=== PATIENT | male | born 1990 | race African-American/Black ===

== ENCOUNTER 2023-06-29 14:23 | Inpatient (IN) | payer OTHER ==
[2023-06-29 18:17] LABS: BASO % 0.4 % (0-2.0); EOS % 0.1 % (0-4.5); HEMATOCRIT 45.9 % (35.4-49); LYMPH % 13.8 % (8-40); MCH 30.1 pg (25.7-33.7); MCHC 34.8 g/dl (32.0-35.9); MEAN CELL VOLUME 86.4 fl (80-96); MEAN PLT VOLUME 7.4 fl (7.5-11.1); NEUT % 72.7 % (42.8-82.8); PLATELET COUNT 270 10^3/uL (134-434); RBC 5.31 M/mm3 (4.00-5.60); RDW 12.9 % (11.9-15.9); WHITE BLOOD COUNT 6.3 K/mm3 (4.0-10.0)
[2023-06-29 18:39] LABS: ALBUMIN 3.4 g/dl (3.4-5.0); CALCIUM 9.2 mg/dL (8.5-10.1)
[2023-06-29 18:40] LABS: BLOOD UREA NITROGEN 13.5 mg/dL (7-18)
[2023-06-29 18:44] LABS: BILIRUBIN,TOTAL 0.4 mg/dL (0.2-1); TOT PROT 8.6 g/dl (6.4-8.2)
[2023-06-29] MEDS ORDERED: PIPERACILLIN/TAZOB 4.5 GM 4.5 GM/100 ML BAG IVPB ONE (20:43)
[2023-06-29] MEDS ORDERED: VANCOMYCIN 1 GRAM (PRE-DOCKED) 1,000 MG/250 ML BAG IVPB ONE (20:43)
[2023-06-29] MEDS: PIPERACILLIN/TAZOB 4.5 GM 4.5 GM in DEXTROSE 5%-WATER 100 ML IVPB ONE (20:50)
[2023-06-29] MEDS: VANCOMYCIN 1,000 MG in DEXTROSE 5%-WATER - 250 ML IVPB ONE (21:17)
[2023-06-30] MEDS: ACETAMINOPHEN 325 MG TABLET (FP) PO PRN (00:48)
[2023-06-30 06:42] LABS: HEMATOCRIT 40.7 % (35.4-49); HEMOGLOBIN 14.2 GM/dL (11.7-16.9); MCH 29.9 pg (25.7-33.7); MEAN CELL VOLUME 85.6 fl (80-96); MEAN PLT VOLUME 7.8 fl (7.5-11.1); PLATELET COUNT 256 10^3/uL (134-434); RBC 4.75 M/mm3 (4.00-5.60); RDW 12.8 % (11.9-15.9); WHITE BLOOD COUNT 6.2 K/mm3 (4.0-10.0)
[2023-06-30 07:26] LABS: POTASSIUM 4.4 mmol/L (3.5-5.1)
[2023-06-30 07:28] LABS: ALBUMIN 2.8 g/dl (3.4-5.0); BLOOD UREA NITROGEN 14.8 mg/dL (7-18); CALCIUM 8.9 mg/dL (8.5-10.1); MAGNESIUM 2.1 mg/dL (1.8-2.4)
[2023-06-30 07:31] LABS: PHOSPHOROUS 4.3 mg/dL (2.5-4.9)
[2023-06-30 07:33] LABS: BILIRUBIN,TOTAL 0.4 mg/dL (0.2-1); TOT PROT 7.3 g/dl (6.4-8.2)
[2023-06-30] MEDS ORDERED: ACETAMINOPHEN 325 MG TABLET (FP) ONE (09:18)
[2023-06-30] MEDS ORDERED: ENOXAPARIN NA (PORCINE) 40 MG/0.4 ML DISP.SYRIN SQ ONE (10:37)
[2023-06-30] MEDS: ENOXAPARIN NA (PORCINE) 40 MG/0.4 ML DISP.SYRIN SQ SCH (10:41)
[2023-06-30 12:26] VITALS: BMI 20.1
[2023-06-30] MEDS: VANCOMYCIN/WATER 1250 MG 1,250 MG/250 ML BAG IVPB SCH (13:39)
[2023-06-30 15:46] LABS: EPI CELLS 4 /uL (0-25.1); HYALINE CASTS 1 /uL (0-3.1); PH,URINE 5.5 (5.0-8.0); URINE APPEARANCE CLEAR; URINE BACTERIA 0 /uL (0-1359); URINE BILIRUBIN NEGATIVE (NEGATIVE); URINE COLOR YELLOW; URINE GLUCOSE (UA) NEGATIVE (NEGATIVE); URINE KETONE 1+ (NEGATIVE); URINE LEUK ESTERASE NEGATIVE (NEGATIVE); URINE NITRITE NEGATIVE (NEGATIVE); URINE PROTEIN 1+ (NEGATIVE); URINE WBC 15 /uL (0-25.8)
[2023-06-30] MEDS: PIPERACILLIN/TAZOB 3.375 GM 3.375 GM in DEXTROSE 5%-WATER - 50 ML IVPB SCH (17:01)
[2023-07-01 07:48] LABS: CALCIUM 8.4 mg/dL (8.5-10.1)
[2023-07-01 07:49] LABS: ALBUMIN 2.5 g/dl (3.4-5.0); BLOOD UREA NITROGEN 18.4 mg/dL (7-18); MAGNESIUM 1.8 mg/dL (1.8-2.4)
[2023-07-01 07:52] LABS: CREATININE 1.1 mg/dL (0.55-1.3)
[2023-07-01 07:54] LABS: TOT PROT 6.8 g/dl (6.4-8.2)
[2023-07-01 07:55] LABS: BASO % 0.8 % (0-2.0); EOS % 0.1 % (0-4.5); HEMATOCRIT 36.8 % (35.4-49); HEMOGLOBIN 13.2 GM/dL (11.7-16.9); LYMPH % 16.4 % (8-40); MCH 30.4 pg (25.7-33.7); MCHC 35.9 g/dl (32.0-35.9); MEAN CELL VOLUME 84.8 fl (80-96); MEAN PLT VOLUME 7.8 fl (7.5-11.1); NEUT % 66.7 % (42.8-82.8); PLATELET COUNT 272 10^3/uL (134-434); RBC 4.34 M/mm3 (4.00-5.60); RDW 13.1 % (11.9-15.9); WHITE BLOOD COUNT 6.3 K/mm3 (4.0-10.0)
[2023-07-01 07:57] LABS: BILIRUBIN,TOTAL 0.4 mg/dL (0.2-1)
[2023-07-02 09:59] LABS: BASO % 0.8 % (0-2.0); EOS % 0.2 % (0-4.5); HEMATOCRIT 39.4 % (35.4-49); HEMOGLOBIN 13.6 GM/dL (11.7-16.9); LYMPH % 13.7 % (8-40); MCH 29.8 pg (25.7-33.7); MCHC 34.5 g/dl (32.0-35.9); MEAN CELL VOLUME 86.5 fl (80-96); MEAN PLT VOLUME 7.7 fl (7.5-11.1); MONO % 13.3 % (3.8-10.2); PLATELET COUNT 287 10^3/uL (134-434); RBC 4.56 M/mm3 (4.00-5.60); RDW 12.9 % (11.9-15.9); WHITE BLOOD COUNT 7.2 K/mm3 (4.0-10.0)
[2023-07-02 10:11] LABS: POTASSIUM 3.5 mmol/L (3.5-5.1)
[2023-07-02 10:20] LABS: ALBUMIN 2.6 g/dl (3.4-5.0); CALCIUM 8.5 mg/dL (8.5-10.1)
[2023-07-02 10:21] LABS: BLOOD UREA NITROGEN 15.2 mg/dL (7-18)
[2023-07-02 10:23] LABS: PHOSPHOROUS 3.6 mg/dL (2.5-4.9)
[2023-07-02 10:25] LABS: BILIRUBIN,TOTAL 0.4 mg/dL (0.2-1); TOT PROT 7.2 g/dl (6.4-8.2)
[2023-07-03 08:57] LABS: POTASSIUM 4.2 mmol/L (3.5-5.1)
[2023-07-03 09:07] LABS: BLOOD UREA NITROGEN 13.8 mg/dL (7-18); CALCIUM 8.6 mg/dL (8.5-10.1)
[2023-07-03 09:08] LABS: ALBUMIN 2.5 g/dl (3.4-5.0); MAGNESIUM 2.1 mg/dL (1.8-2.4)
[2023-07-03 09:10] LABS: CREATININE 0.9 mg/dL (0.55-1.3); PHOSPHOROUS 3.3 mg/dL (2.5-4.9)
[2023-07-03 09:11] LABS: BILIRUBIN,TOTAL 0.4 mg/dL (0.2-1)
[2023-07-03 09:21] LABS: BASO % 0.7 % (0-2.0); EOS % 0.2 % (0-4.5); HEMOGLOBIN 13.3 GM/dL (11.7-16.9); LYMPH % 10.3 % (8-40); MCH 29.2 pg (25.7-33.7); MCHC 34.1 g/dl (32.0-35.9); MEAN CELL VOLUME 85.6 fl (80-96); MEAN PLT VOLUME 7.9 fl (7.5-11.1); MONO % 16.2 % (3.8-10.2); NEUT % 72.6 % (42.8-82.8); PLATELET COUNT 297 10^3/uL (134-434); RBC 4.56 M/mm3 (4.00-5.60); WHITE BLOOD COUNT 8.5 K/mm3 (4.0-10.0)
[2023-07-05 08:26] LABS: BASO % 0.7 % (0-2.0); EOS % 0.2 % (0-4.5); HEMATOCRIT 38.2 % (35.4-49); HEMOGLOBIN 13.4 GM/dL (11.7-16.9); LYMPH % 10.6 % (8-40); MCH 30.1 pg (25.7-33.7); MCHC 35.2 g/dl (32.0-35.9); MEAN CELL VOLUME 85.7 fl (80-96); MEAN PLT VOLUME 7.3 fl (7.5-11.1); MONO % 14.1 % (3.8-10.2); NEUT % 74.4 % (42.8-82.8); PLATELET COUNT 353 10^3/uL (134-434); RBC 4.46 M/mm3 (4.00-5.60); RDW 13.5 % (11.9-15.9); WHITE BLOOD COUNT 9.7 K/mm3 (4.0-10.0)
[2023-07-05 08:40] LABS: POTASSIUM 4.7 mmol/L (3.5-5.1)
[2023-07-05 08:47] LABS: CALCIUM 8.8 mg/dL (8.5-10.1)
[2023-07-05 08:48] LABS: ALBUMIN 2.4 g/dl (3.4-5.0); BLOOD UREA NITROGEN 13.1 mg/dL (7-18); MAGNESIUM 2.3 mg/dL (1.8-2.4)
[2023-07-05 08:51] LABS: CREATININE 0.9 mg/dL (0.55-1.3); PHOSPHOROUS 3.4 mg/dL (2.5-4.9)
[2023-07-05 08:53] LABS: BILIRUBIN,TOTAL 0.5 mg/dL (0.2-1); TOT PROT 7.2 g/dl (6.4-8.2)
[2023-07-06 10:01] LABS: BASO % 0.7 % (0-2.0); HEMATOCRIT 41.1 % (35.4-49); HEMOGLOBIN 13.9 GM/dL (11.7-16.9); LYMPH % 7.4 % (8-40); MCH 29.3 pg (25.7-33.7); MCHC 33.9 g/dl (32.0-35.9); MEAN CELL VOLUME 86.3 fl (80-96); MEAN PLT VOLUME 7.2 fl (7.5-11.1); MONO % 12.7 % (3.8-10.2); NEUT % 79.2 % (42.8-82.8); PLATELET COUNT 431 10^3/uL (134-434); RBC 4.76 M/mm3 (4.00-5.60); RDW 13.6 % (11.9-15.9); WHITE BLOOD COUNT 11.2 K/mm3 (4.0-10.0)
[2023-07-06 10:29] LABS: POTASSIUM 4.1 mmol/L (3.5-5.1)
[2023-07-06 10:44] LABS: PHOSPHOROUS 3.1 mg/dL (2.5-4.9)
[2023-07-06 10:45] LABS: BILIRUBIN,TOTAL 0.5 mg/dL (0.2-1)
[2023-07-06 10:46] LABS: TOT PROT 7.8 g/dl (6.4-8.2)
[2023-07-06 11:07] LABS: CALCIUM 8.8 mg/dL (8.5-10.1)
[2023-07-06 11:08] LABS: ALBUMIN 2.7 g/dl (3.4-5.0); BLOOD UREA NITROGEN 16.5 mg/dL (7-18); MAGNESIUM 2.3 mg/dL (1.8-2.4)
[2023-07-06] MEDS: KETOROLAC TROMETHAMINE 15 MG/ML VIAL IVPUSH ONE (14:46)
[2023-07-06] MEDS: ACETAMINOPHEN 325 MG TABLET (FP) PO PRN (18:16)
[2023-07-06] MEDS ORDERED: ONDANSETRON 4 MG/2 ML VIAL IVPUSH PRN (18:22)
[2023-07-06] MEDS: guaiFENesin 600 MG TABLET.ER (FP) PO SCH (22:33)
[2023-07-07 08:34] LABS: BASO % 0.5 % (0-2.0); EOS % 0.1 % (0-4.5); HEMOGLOBIN 12.8 GM/dL (11.7-16.9); LYMPH % 9.1 % (8-40); MCH 30.2 pg (25.7-33.7); MCHC 35.5 g/dl (32.0-35.9); MEAN CELL VOLUME 85.2 fl (80-96); MEAN PLT VOLUME 7.2 fl (7.5-11.1); MONO % 11.9 % (3.8-10.2); NEUT % 78.4 % (42.8-82.8); PLATELET COUNT 381 10^3/uL (134-434); RBC 4.23 M/mm3 (4.00-5.60); RDW 13.5 % (11.9-15.9); WHITE BLOOD COUNT 9.6 K/mm3 (4.0-10.0)
[2023-07-07 09:17] LABS: POTASSIUM 4.6 mmol/L (3.5-5.1)
[2023-07-07 09:25] LABS: CALCIUM 8.3 mg/dL (8.5-10.1)
[2023-07-07 09:26] LABS: ALBUMIN 2.3 g/dl (3.4-5.0); BLOOD UREA NITROGEN 18.8 mg/dL (7-18); MAGNESIUM 2.2 mg/dL (1.8-2.4)
[2023-07-07 09:29] LABS: PHOSPHOROUS 2.9 mg/dL (2.5-4.9)
[2023-07-07 09:30] LABS: BILIRUBIN,TOTAL 0.5 mg/dL (0.2-1)
[2023-07-07 09:31] LABS: TOT PROT 6.9 g/dl (6.4-8.2)
[2023-07-07] MEDS: ISONIAZID 300 MG TABLET (FP) PO SCH (09:52)
[2023-07-07] MEDS: PYRAZINAMIDE 500 MG TABLET PO SCH (09:52)
[2023-07-07] MEDS: PYRIDOXINE HCL (B-6) 50 MG TABLET (FP) PO SCH (09:52)
[2023-07-07] MEDS: ETHAMBUTOL HCL 400 MG TABLET PO SCH (09:52)
[2023-07-07] MEDS: RIFAMPIN 300 MG CAPSULE PO SCH (09:52)
[2023-07-07 21:32] LABS: POTASSIUM 4.3 mmol/L (3.5-5.1)
[2023-07-07 21:33] LABS: CALCIUM 8.6 mg/dL (8.5-10.1)
[2023-07-07 21:37] LABS: CREATININE 0.9 mg/dL (0.55-1.3)
[2023-07-08 09:18] LABS: BASO % 0.7 % (0-2.0); EOS % 0.3 % (0-4.5); HEMATOCRIT 35.5 % (35.4-49); HEMOGLOBIN 12.1 GM/dL (11.7-16.9); LYMPH % 11.5 % (8-40); MCH 29.3 pg (25.7-33.7); MCHC 34.1 g/dl (32.0-35.9); MEAN PLT VOLUME 7.4 fl (7.5-11.1); MONO % 14.2 % (3.8-10.2); NEUT % 73.3 % (42.8-82.8); PLATELET COUNT 383 10^3/uL (134-434); RBC 4.13 M/mm3 (4.00-5.60); RDW 13.5 % (11.9-15.9); WHITE BLOOD COUNT 10.6 K/mm3 (4.0-10.0)
[2023-07-08 09:35] LABS: POTASSIUM 4.4 mmol/L (3.5-5.1)
[2023-07-08 09:37] LABS: ALBUMIN 2.4 g/dl (3.4-5.0); BLOOD UREA NITROGEN 18.1 mg/dL (7-18); CALCIUM 8.6 mg/dL (8.5-10.1); MAGNESIUM 2.2 mg/dL (1.8-2.4)
[2023-07-08 09:40] LABS: CREATININE 0.9 mg/dL (0.55-1.3); PHOSPHOROUS 3.2 mg/dL (2.5-4.9)
[2023-07-08 09:42] LABS: BILIRUBIN,TOTAL 0.8 mg/dL (0.2-1)
[2023-07-08] MEDS: SODIUM CHLORIDE 1,000 ML IV SCH (18:05)
[2023-07-09 09:01] LABS: BASO % 0.5 % (0-2.0); EOS % 0.2 % (0-4.5); HEMATOCRIT 36.8 % (35.4-49); HEMOGLOBIN 12.7 GM/dL (11.7-16.9); LYMPH % 8.4 % (8-40); MCH 29.6 pg (25.7-33.7); MCHC 34.4 g/dl (32.0-35.9); MEAN PLT VOLUME 7.1 fl (7.5-11.1); MONO % 11.2 % (3.8-10.2); NEUT % 79.7 % (42.8-82.8); PLATELET COUNT 402 10^3/uL (134-434); RBC 4.28 M/mm3 (4.00-5.60); RDW 13.3 % (11.9-15.9); WHITE BLOOD COUNT 12.8 K/mm3 (4.0-10.0)
[2023-07-09 09:26] LABS: POTASSIUM 4.2 mmol/L (3.5-5.1)
[2023-07-09 09:30] LABS: CALCIUM 9.1 mg/dL (8.5-10.1)
[2023-07-09 09:31] LABS: ALBUMIN 2.3 g/dl (3.4-5.0); BLOOD UREA NITROGEN 19.2 mg/dL (7-18); MAGNESIUM 2.4 mg/dL (1.8-2.4)
[2023-07-09 09:34] LABS: PHOSPHOROUS 3.9 mg/dL (2.5-4.9)
[2023-07-09 09:35] LABS: BILIRUBIN,TOTAL 0.6 mg/dL (0.2-1); TOT PROT 7.2 g/dl (6.4-8.2)
[2023-07-11] MEDS: ACETAMINOPHEN 325 MG TABLET (FP) PO ONE (07:27)
[2023-07-11] MEDS: ACETAMINOPHEN 1000 MG/100 ML BAG IVPB ONE (08:11)
[2023-07-11 09:43] LABS: BASO % 0.7 % (0-2.0); EOS % 0.3 % (0-4.5); HEMATOCRIT 37.3 % (35.4-49); HEMOGLOBIN 12.6 GM/dL (11.7-16.9); LYMPH % 10.8 % (8-40); MCH 28.9 pg (25.7-33.7); MCHC 33.8 g/dl (32.0-35.9); MEAN CELL VOLUME 85.7 fl (80-96); MEAN PLT VOLUME 7.2 fl (7.5-11.1); MONO % 12.9 % (3.8-10.2); NEUT % 75.3 % (42.8-82.8); PLATELET COUNT 425 10^3/uL (134-434); RBC 4.35 M/mm3 (4.00-5.60); RDW 13.4 % (11.9-15.9); WHITE BLOOD COUNT 9.6 K/mm3 (4.0-10.0)
[2023-07-12 11:47] LABS: BASO % 0.8 % (0-2.0); EOS % 0.4 % (0-4.5); HEMOGLOBIN 12.6 GM/dL (11.7-16.9); LYMPH % 8.3 % (8-40); MCH 29.4 pg (25.7-33.7); MEAN CELL VOLUME 86.6 fl (80-96); MEAN PLT VOLUME 6.9 fl (7.5-11.1); NEUT % 78.5 % (42.8-82.8); PLATELET COUNT 413 10^3/uL (134-434); RBC 4.28 M/mm3 (4.00-5.60); RDW 13.5 % (11.9-15.9); WHITE BLOOD COUNT 9.6 K/mm3 (4.0-10.0)
[2023-07-12 12:04] LABS: POTASSIUM 4.3 mmol/L (3.5-5.1)
[2023-07-12 12:06] LABS: CALCIUM 9.1 mg/dL (8.5-10.1)
[2023-07-12 12:07] LABS: ALBUMIN 2.3 g/dl (3.4-5.0); BLOOD UREA NITROGEN 15.1 mg/dL (7-18)
[2023-07-12 12:11] LABS: BILIRUBIN,TOTAL 0.4 mg/dL (0.2-1); TOT PROT 7.5 g/dl (6.4-8.2)
[2023-07-13 08:55] LABS: BASO % 0.8 % (0-2.0); EOS % 0.3 % (0-4.5); HEMATOCRIT 36.6 % (35.4-49); HEMOGLOBIN 12.2 GM/dL (11.7-16.9); MCH 28.9 pg (25.7-33.7); MCHC 33.2 g/dl (32.0-35.9); MEAN PLT VOLUME 6.8 fl (7.5-11.1); MONO % 13.4 % (3.8-10.2); NEUT % 74.5 % (42.8-82.8); PLATELET COUNT 396 10^3/uL (134-434); RDW 13.5 % (11.9-15.9); WHITE BLOOD COUNT 8.6 K/mm3 (4.0-10.0)
[2023-07-13 09:13] LABS: POTASSIUM 4.6 mmol/L (3.5-5.1)
[2023-07-13 09:19] LABS: ALBUMIN 2.2 g/dl (3.4-5.0); CALCIUM 8.7 mg/dL (8.5-10.1)
[2023-07-13 09:20] LABS: BLOOD UREA NITROGEN 14.9 mg/dL (7-18)
[2023-07-13 09:22] LABS: CREATININE 0.9 mg/dL (0.55-1.3)
[2023-07-13 09:24] LABS: BILIRUBIN,TOTAL 0.4 mg/dL (0.2-1); TOT PROT 7.1 g/dl (6.4-8.2)
[2023-07-14 05:37] VITALS: RESP 18
[2023-07-14 10:06] LABS: BASO % 0.7 % (0-2.0); EOS % 0.7 % (0-4.5); HEMATOCRIT 39.2 % (35.4-49); HEMOGLOBIN 13.2 GM/dL (11.7-16.9); LYMPH % 9.5 % (8-40); MCH 29.3 pg (25.7-33.7); MCHC 33.6 g/dl (32.0-35.9); MEAN CELL VOLUME 87.2 fl (80-96); MEAN PLT VOLUME 6.4 fl (7.5-11.1); MONO % 7.8 % (3.8-10.2); NEUT % 81.3 % (42.8-82.8); PLATELET COUNT 399 10^3/uL (134-434); RDW 14.1 % (11.9-15.9); WHITE BLOOD COUNT 9.8 K/mm3 (4.0-10.0)
[2023-07-14 10:31] LABS: POTASSIUM 4.1 mmol/L (3.5-5.1)
[2023-07-14 10:35] LABS: BLOOD UREA NITROGEN 16.4 mg/dL (7-18); CALCIUM 9.4 mg/dL (8.5-10.1)
[2023-07-14 10:37] LABS: ALBUMIN 2.4 g/dl (3.4-5.0)
[2023-07-14 10:41] LABS: BILIRUBIN,TOTAL 0.3 mg/dL (0.2-1); TOT PROT 7.7 g/dl (6.4-8.2)
[2023-07-14 15:11] VITALS: BP 105/74; PULSE 103; TEMP 99
== END 2023-07-14 17:15 | disposition home or self-care (01) | DRG 137 ==
LOC: JER 14:23 → JERBED 20:13 → J6S 06-30 11:10
PROVIDERS: ADMIT Internal Medicine; ATTEND Internal Medicine
DX: A15.0 Tuberculosis of lung (principal); R78.81 Bacteremia; R00.0 Tachycardia, unspecified; E87.1 Hypo-osmolality and hyponatremia; R05.3 Chronic cough; R07.81 Pleurodynia; R91.8 Other nonspecific abnormal finding of lung field; R50.9 Fever, unspecified; Z59.00 Homelessness unspecified
CPT/HCPCS: 0241U-QW; 36415; 71045-TC-FY; 71250-TC; 71260-TC; 80048; 80053; 81003; 82533; 83605; 83735; 83930; 83935; 84100; 84300; 85025; 85027; 86480; 87040; 87070; 87081; 87086; 87116; 87205; 87206; 87536; 87899; 93005; 93010; 99285-25